=== PATIENT | female | born 1945 | race Caucasian/White ===

== ENCOUNTER 2017-04-06 00:38 | Emergency (ER) | payer MEDICARE ==
[~2017-04-06] VITALS: Ht 165.1 cm; Wt 108.4 kg
[~2017-04-06 00:38] MED LIST: AMBIEN; AMBIEN5 MG; BELLADONNA PO; BENADRY; BENADRYL; COSOPT1 DROP RIGHT EYE; DIPHENHYDRAMINE25 M1; DOXEPIN HCL10 MG PO; FOLIC ACID1 MG PO; GABAPENTIN600 MG PO; IMIPRAMINE PO; LASIX20 M1 PO; LUMIGAN1 DROP RIGHT EYE; PREDFORTE LEFT EYE; PREDNISOLONE ACE5 ML LEFT EYE; PRILOSEC OTC20 MG PO; PROZAC20 MG PO; QUESTRAN POWDER4 GM PO; SYNTHROID300 MCG PO; VIT B12 IM
[2017-04-06] MEDS ORDERED: TdaP Vaccine 0.5ml Syr IM ONE (00:45)
[2017-04-06 01:00] VITALS: BP 131/62
--- NOTE | 2017-04-06 01:16 | Emergency Room Report ---
History of Present Illness General Chief Complaint: Multiple Trauma/Fall Source: Patient, EMS Present Illness HPI This is a 71-year-old female who is wheelchair-bound but able to transfer herself. She is also legally blind. She presents with chief complaint of laceration to the left leg. She was in the bathroom and transferring her chair and fell. She did not hit her head. She caught herself with sustained a laceration to the left leg. She was which between her wheelchair and the wall. No other injury. Did not pass out. No nausea no vomiting. Allergies: Coded Allergies: FORMALDEHYDE (Verified Allergy, Mild, 12/15/11) PENICILLIN G (Verified Allergy, Mild, 12/15/11) LEFLUNOMIDE (Unverified Allergy, Unknown, Hives, 04/01/15) NSAIDS (NON-STEROIDAL ANTI-INFLAMMA (Unverified Allergy, Unknown, Shortness of Breath, 04/01/15) PENICILLINS (Unverified Allergy, Unknown, 04/06/17) Patient History Past Medical History: see triage record, old chart reviewed Past Surgical History: other Pertinent Family History: none Social History: Denies: drug use Last Menstrual Period: UKN Now: No Immunizations: UTD Reviewed Nursing Documentation: PMH: Agreed, PSxH: Agreed Nursing Documentation-PMH Past Medical History: No History, Except For Hx Cardiac Problems: No Hx Cancer: No Hx Gastrointestinal Problems: Yes Hx Neurological Problems: Yes - MENIERE'S DISEASE Review of Systems Eye: Denies: blurred vision, eye pain ENT: Denies: ear pain, nose congestion, throat swelling Respiratory: Denies: cough, shortness of breath Cardiovascular: Denies: chest pain, palpitations Gastrointestinal: Denies: abdominal pain, diarrhea, nausea, vomiting Musculoskeletal: Reports: muscle pain, Denies: back pain, joint pain Skin: Denies: rash Neurological: Denies: headache, numbness Endocrine: Denies: increased thirst, increased urine Hematologic/Lymphatic: Denies: easy bruising All Other Systems: negative except mentioned in HPI Physical Exam Vital Signs Date Time Temp Pulse Resp B/P Pulse Ox O2 Delivery O2 Flow Rate FiO2 04/06/17 00:37 98.8 90 16 118/62 99 Room Air vitals normal Sp02 EP Interpretation: reviewed, normal General Appearance: well appearing, no apparent distress, alert Head: normocephalic, atraumatic Eyes: bilateral eye EOMI, bilateral eye PERRL ENT: hearing grossly normal, normal pharynx Neck: full range of motion, supple, no meningismus Respiratory: chest non-tender, lungs clear, normal breath sounds Cardiovascular #1: regular rate, rhythm, no murmur Gastrointestinal: normal bowel sounds, non tender, no mass, no organomegaly, no bruit, non-distended Musculoskeletal: back normal, other - Left leg: Left lower leg there is a large stellate irregular laceration to the proximal third. There is about 3 cm of skin missing. The length of the laceration is about 15 centimeter. Sensation normal. Laceration is just to the epidermis. Psychiatric: mood/affect normal Skin: warm/dry Procedures Laceration/Wound Repair Laceration/Wound Repair : Consent: Verbal Wound Location: lower extremity Wound's Depth, Shape: superficial, irregular, flap, stellate, contused tissue Wound Length (cm): 15 Wound Explored: clean Irrigated w/ Saline (ccs): 1000 Anesthesia: 1% Lidocaine Volume Anesthetic (ccs): 10 Wound Debrided: minimal Wound Repaired With: sutures Suture Size/Type: 3:0, proline Number of Sutures: 8 Patient Tolerated: Well Complications: None Progress I had to revise some of the tissue. There was a big piece of tissue missing in the middle. Was able to close the distal end with 8 interrupted 3-0 Prolene suture. There was about 4 cm in the middle that has missing skin. A dressing was placed over it. He said tolerated procedure without a problem. Medical Decision Making Diagnostic Impression: Primary Impression: Fall Qualified Codes: W19.XXXA - Unspecified fall, initial encounter Additional Impressions: Laceration of left lower extremity Qualified Codes: S81.812A - Laceration without foreign body, left lower leg, initial encounter Avulsion of skin of left lower leg Qualified Codes: S81.802A - Unspecified open wound, left lower leg, initial encounter ER Course She present with a fall and skin laceration and avulsion. She is at increased risk for infection. We'll discharge home with antibiotics. No evidence of any fracture. Other X-Ray Diagnostic Results X-Ray ordered: Left tib-fib # of Views/Limited Vs Complete: 2 View Interpretation: no fractures, no dislocation, no soft tissue swelling, other - No foreign body Indication: Pain Impression: No acute disease Date Electronically Signed: Apr 06, 2017 Time Electronically Signed: 02:01 Interpreting ER Physician: Jorge Forrest MD Last Vital Signs Date Time Temp Pulse Resp B/P Pulse Ox O2 Delivery O2 Flow Rate FiO2 04/06/17 00:37 98.8 90 16 118/62 99 Room Air Status: improved Disposition: HOME, SELF-CARE Condition: Stable Scripts Cephalexin* (KEFLEX*) 500 Mg Capsule 500 MG ORAL TID, #21 CAP 0 Refills Prov: JORGE FORREST M.D. 04/06/17 Additional Instructions: Followup your Dr. in 2-3 days for recheck. You are at high risk for infection because of missing skin. Return if symptom worsen. JORGE FORREST M.D. Apr 06, 2017 01:16
[2017-04-06 02:00] VITALS: BP 128/55
[2017-04-06] MEDS ORDERED: KEFLEX500 MG ORAL (02:02)
[2017-04-06 02:36] VITALS: BP 142/54
--- NOTE | 2017-04-06 09:31 | Diagnostic Imaging Report ---
Indications: Left leg injury and pain Technique: 2 views left leg. Findings: Comparison: None Soft tissues are diffusely edematous. No fracture, dislocation, joint space widening , soft tissue foreign body/gas, or other acute changes are identified. IMPRESSION: Diffuse soft tissue edema, nonspecific Otherwise no evidence of acute injury to the left leg.
== END 2017-04-06 02:42 | disposition home or self-care (01) ==
LOC: EDBD 00:38 → EMR 01:14
DX: S81.812A Laceration without foreign body, left lower leg, initial encounter (principal); W19.XXXA Unspecified fall, initial encounter; Y92.002 Bathroom of unspecified non-institutional (private) residence as the place of occurrence of the external cause; H54.8 Legal blindness, as defined in USA; Z88.0 Allergy status to penicillin; Z88.8 Allergy status to other drugs, medicaments and biological substances; Z88.6 Allergy status to analgesic agent